=== PATIENT | male | born 1960 | race Caucasian/White ===

== ENCOUNTER → 2016-06-13 | Day surgery (SDC) | payer OTHER ==
--- NOTE | 2016-06-02 13:01 | MH ---
cc: RAMIREZJESSICAARLIN DATE OF ADMISSION: 06/13/2016 ADMITTING DIAGNOSIS Complex tear medial meniscus left knee. Pain left knee. HISTORY The patient is a 55-year-old white male who has experienced pain of his left knee of approximately seven months' duration. He had sustained a sprain-type injury about his right ankle secondary to chasing his grandson and, as he was undergoing rehabilitation following that injury, he tended to favor his right lower extremity with increased weightbearing activities applied to his left leg. As a result he began to note pain generalized about the medial aspect of his left knee which influenced his exercise activities which had included bicycle riding and yoga. The patient was taking Aleve for pain management with minimal relief being noted. He was experiencing residual pain with an occasional swelling and an intermittent popping sensation for which he presented to the undersigned physician in February of this year. At that time his x-ray studies identified trace narrowing about the medial compartment associated with a varus deformity of approximately 10 degrees magnitude but no acute bony abnormality being noted. The patient was diagnosed as having a transient synovitis of his left knee for which he was prescribed diclofenac 75 mg and followed on an outpatient basis thereafter. Unfortunately he experienced residual soreness about his left knee and subsequently underwent an MRI scan, the results of which identified an abnormality throughout the medial meniscus involving the posterior horn and body that was felt to be consistent with a repaired tear versus a complex tear. There was hypertrophy of the anterior cruciate ligament. The patient had remained symptomatic with pain about his left knee for which treatment options were reviewed. The pros and cons of continuing with conservative management versus operative intervention that would involve arthroscopic surgery were outlined in detail. Emphasis was made regarding the fact that the decision to proceed with surgery would be left entirely to the patient's discretion. The patient was inclined to consider surgery at that time but he expressed his desire to wait until after the Hols to proceed with treatment. In more recent follow-up he indicated his desire to proceed with surgery as discussed and in compliance with his wishes he is currently being admitted in order that the above be accomplished. PAST MEDICAL HISTORY, HOSPITALIZATIONS AND SURGERIES 1. Previous arthroscopic surgery of the knee. 2. 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 3. Tonsillectomy. 4. Colonoscopy. MEDICAL ILLNESSES Bronchial asthma. Hypothyroidism. CURRENT MEDICATIONS 1. Levothyroxine 50 mcg daily. 2. Atorvastatin 5 mg daily. 3. Azelastine spray one to each nostril daily. Additional medications include various [id number] products including - 1. Fish oil. 2. Acai GEMMA 100 complex. 3. Vitamin D3 with K2. 4. Probiotic. 5. Joint complex. 6. Curmeric. 7. C0Q10. 8. CLA. 9. Coconut oil. 10. Recoverite. ALLERGIES The patient denies any known drug allergies. REVIEW OF SYSTEMS He wears glasses for reading purposes. Denies headache, seizure or syncope. Sinus congestion as related to hay fever. No epistaxis. Auditory acuity intact; no tinnitus. No bleeding gums or dysphagia. Denies cough, shortness of breath, upper respiratory infection, pneumonia or tuberculosis. No angina or heart disease. His appetite is good. Bowel movements are regular. No hepatitis, gallbladder disease, ulcers or hemorrhoids. No urinary tract infection. There is a history of prostatitis. Multiple fractures including his right forearm, right ankle, left wrist, both hands, left clavicle and rib fractures. No psychiatric illness. His remaining review of systems is unremarkable and noncontributory. FAMILY HISTORY The patient has been 37 years. His is 58 years of age and described as being in good health. One son and one daughter indicated to be in good health. Family history is otherwise positive for hypertension, emphysema, heart disease and skin cancer. SOCIAL HISTORY The patient completed a high school education. 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 He denies active use of tobacco. Limited ethanol consumption in the form of an occasional beer. PHYSICAL EXAMINATION VITAL SIGNS: Height 5 feet, 10 inches, weight 201 pounds. GENERAL: An alert, oriented and responsive 55-year-old white male who sits quietly upon the examination table with no obvious distress. HEAD, EYES, EARS, NOSE, AND THROAT: Pupils are equally round and reactive to light. Extraocular movements full. Sclerae clear. External nares clear. External auditory canals clear. Dental intact. Mucous membranes pink and moist. Pharynx clear. NECK: Supple. Active range of motion with no appreciable pain. Carotid pulse bilaterally. Trachea midline. Thyroid without enlargement. LUNGS: Clear to auscultation and percussion. No CVA tenderness. No discomfort throughout the dorsal lumbar spine. HEART: Regular rhythm. No murmur or gallop. ABDOMEN: Soft, nontender. Bowel sounds present. RECTAL: Per primary care physician. EXTREMITIES: Left knee - No significant swelling or effusion. There is minimal medial joint line tenderness without palpable deformity. Apprehension and compression sign negative. Slight limitation of mobility at the extreme of flexion but no associated crepitation or instability. No collateral ligamentous laxity. Juancarlos test and drawer sign negative. Pivot shift and Diogenes sign minimally positive for medial compartment pain. Straight-leg raising unremarkable at 80 degrees satisfactory mobility of the left hip with no associated pain. Independent gait. NEUROLOGIC: Cranial nerves II-XII grossly intact. IMPRESSION Complex tear medial meniscus left knee. Pain left knee. PLAN Arthroscopic surgery and possible arthrotomy left knee. The nature of the planned surgical procedure, the potential complications and risks associated, the expectations of surgery and the consent form were thoroughly reviewed with the patient prior to his admission to the hospital. Devendra has indicated his full understanding regarding all of the above and given consent to proceed with treatment as outlined. Medical evaluation and clearance for surgery will be completed by his primary care physician, Dr. Roshan Velazquez. Arlin Ham MD NBS/SSB /11:34 AM /12:44 PM
[~2016-06-13] VITALS: Ht 177.8 cm; Wt 91.7 kg
[~2016-06-13] MED LIST: ACETAMINOPHEN/HYDROcodone 325 MG/5 MG TAB PO PRN; ATOR10TA15 PO; AZEL0.055 EACH NARE; COCO1000 PO; COQ-100C2 PO; DEXAMETHASONE SOD PHOS 4 MG/ML VIAL ONE; DO NOT ADM ANY ANTICOAGULANT DRUGS XX PRN; FAMOTIDINE 20 MG/2 ML VIAL ONE; FISH120014 PO; INSULIN HUMAN REGULAR 1,000 UNITS/10 ML VIAL SQ PRN; JUICLIQ5 PO; KETOROLAC TROMETHAMINE 60 MG/2 ML (IM) VIAL IM ONE; LACTATED RINGER'S 1000 ML IV SCH; LEVO50TA4 PO; LIDOCAINE HCL 2% 50 ML VIAL ONE; METOPROLOL TARTRATE 25 MG TAB PO PRN; MIDAZOLAM HCL 2 MG/2 ML VIAL ONE; MORPHINE SULFATE 10 MG/ML INJ IM PRN; ONDANSETRON HCL 4 MG/2 ML VIAL IV PUSH ONE; POVIDONE IODINE 7.5% SCRUB 118 ML BOTTLE TOP SCH; PROB1TAB2 PO; PROMETHAZINE INJ 25 MG/ML VIAL IM PRN; PROPOFOL 200 MG/20 ML AMP IV ONE; SODIUM CHLORID 0.9% 500 ML IV SCH; SYMB160A INH; TRIAMCINOLONE ACETONIDE 40 MG/ML VIAL I-ARTICULR ONE; TURMCAP PO; ceFAZolin 2 GM PREMIX 50 ML IV SCH
[2016-06-13 05:45] VITALS: BP 137/79; PULSE 69; RESP 16; TEMP 97.9; O2SAT 98
--- NOTE | 2016-06-13 09:14 | MP ---
cc: ARLIN HAM MD DATE OF OPERATION 06/13/2016 PREOPERATIVE DIAGNOSIS Complex tear of the medial meniscus of the left knee and pain of the left knee. POSTOPERATIVE DIAGNOSIS Complex tear of the medial meniscus of the left knee and pain of the left knee including chondromalacia patellae of the left knee and synovial plica left knee. PROCEDURE Partial medial meniscectomy left knee, chondroplasty of the patellofemoral joint and resection of synovial plica left knee. SURGEON Arlin Ham MD ANESTHESIA General by LMA FORMAT Following the induction of satisfactory general anesthesia by LMA insertion as completed per the Department of Anesthesia, examination of the left knee revealed a satisfactory range of motion with no appreciable ligamentous instability. The extremity proper was positioned into the neurosurgical physician assistant knee [place], prepped with Betadine solution and draped into a sterile field in the routine manner. Prior to initiation of the actual procedure, the standard time-out protocol was completed. All parameters were appropriately addressed and confirmed by operating room personnel. Arthroscopic instrumentation was introduced through a stab wound mobilizing cannula with sharp and blunt trocar, the inflow irrigation by way of a medial suprapatellar portal, the arthroscope through a lateral parapatellar portal and a probe through a medial parapatellar portal. Examination of the suprapatellar pouch revealed a transverse synovial plica within the suprapatellar region. Moderate cartilaginous irregularity involving the patellofemoral articulation was appreciated consistent with localized chondromalacia. Within the medial compartment, a complex tear involving the body and posterior horn of the medial meniscus was noted. Minimal degenerative change along the adjacent articular surfaces was noted. The anterior cruciate ligament was identified and noted to be intact. Within the lateral compartment, there was uniformity of the articular surfaces. The lateral meniscus appeared within normal limits. Attention was redirected to the medial compartment utilizing both a 4.0 aggressive arthroscopic resector, as well as a biting suction forceps a partial medial meniscectomy was accomplished. The shaver was thereafter oriented into the suprapatellar region where the previously identified synovial plica was resected, as well as a localized chondroplasty of the patellofemoral joint. Upon completion of same, the joint space was thoroughly lavaged and suctioned dry. An intra-articular Kenalog/Lidocaine injection was completed. The portal sites were reapproximated with Steri-Strips over which Xeroform gauze and a bulky dry sterile dressing were placed. Anesthesia was discontinued and the patient thus transferred to a hospital stretcher and returned to the recovery room in satisfactory condition having tolerated his operative procedure well. Estimated blood loss was less than 10 cc. MD JAMES Parr/JOHN /8:29 AM /9:01 AM
[2016-06-13 09:50] VITALS: BP 129/74; PULSE 73; RESP 18; TEMP 98.5; O2SAT 97
== END | disposition home or self-care (01) ==
LOC: HSDC 05:35 → EDUNIT# 07:30
PROVIDERS: ATTEND Orthopaedic Surgery
DX: S83.232A Complex tear of medial meniscus, current injury, left knee, initial encounter (principal); M67.52 Plica syndrome, left knee; M22.42 Chondromalacia patellae, left knee; S99.911A Unspecified injury of right ankle, initial encounter; J45.909 Unspecified asthma, uncomplicated; E03.9 Hypothyroidism, unspecified
CPT/HCPCS: 01400; 29881; 86850; 86900; 86901; J0690; J1100; J1885; J2250; J2405; J3010; J3301; J7040; J7120